=== PATIENT | female | born 1955 | race Caucasian/White ===

== ENCOUNTER 2023-07-06 19:34 | Emergency (ER) | payer MEDICAID, MEDICARE ==
[~2023-07-06] VITALS: Ht 162.6 cm; Wt 56.8 kg
[~2023-07-06 19:34] MED LIST: ASPI-1085 PO; CIPR2.5D12 LEFTEYE; NICO-687 TD; VALA100031 PO
[2023-07-06 19:53] VITALS: TEMP 98.6
[2023-07-06] MEDS ORDERED: acetaminophen 325mg tablet PO ONE (23:20)
[2023-07-06] MEDS ORDERED: ACET-812 PO (23:20)
[2023-07-06 23:29] VITALS: BP 134/69; PULSE 96; RESP 14; O2SAT 90
== END 2023-07-07 00:27 | disposition home or self-care (01) ==
LOC: ER 19:34
DX: M25.572 Pain in left ankle and joints of left foot (principal); Z91.09 Other allergy status, other than to drugs and biological substances; Z88.1 Allergy status to other antibiotic agents; Z79.1 Long term (current) use of non-steroidal anti-inflammatories (NSAID); Z79.82 Long term (current) use of aspirin
CPT/HCPCS: 93971; 99284; A4615

== ENCOUNTER 2023-07-14 18:18 | Inpatient (IN) | payer MEDICARE, MEDICAID ==
[~2023-07-14] VITALS: Ht 160 cm; Wt 61.2 kg
[~2023-07-14 18:18] MED LIST changes: +ACET-812 PO
[2023-07-14 18:29] LABS: BASOPHILS % (AUTO) 0.1 % (0-1); EOSINOPHILS # (AUTO) 0.1 X10'3 (0-0.9); EOSINOPHILS % (AUTO) 0.2 % (0-6); HEMATOCRIT 29.7 % (35.0-45.0); HEMOGLOBIN 9.2 g/dl (12.0-16.0); LYMPHOCYTES # (AUTO) 1.3 X10'3 (1.1-4.8); LYMPHOCYTES % (AUTO) 4.7 % (21-51); MEAN CORPUSCULAR HEMOGLOBIN 23.8 PG (27.0-31.0); MEAN CORPUSCULAR HGB CONC 30.8 g/dL (33.0-36.5); MEAN PLATELET VOLUME 8.1 FL (7.4-10.4); MONOCYTES # (AUTO) 0.8 X10'3 (0-0.9); MONOCYTES % (AUTO) 2.7 % (2-12); NEUTROPHILS # (AUTO) 26.1 X10'3 (1.8-7.7); NEUTROPHILS % (AUTO) 92.3 % (42-75); PLATELET COUNT 362 X10'3 (140-440); RED BLOOD COUNT 3.85 X10'6 (4.20-5.60); RED CELL DISTRIBUTION WIDTH 24.4 % (11.5-14.5)
[2023-07-14 18:37] LABS: WHITE BLOOD COUNT 28.3 X10'3 (4.5-11.0)
[2023-07-14 18:46] LABS: ALANINE AMINOTRANSFERASE 54 U/L (12-78); ALBUMIN 1.6 G/DL (3.4-5.0); ALBUMIN/GLOBULIN RATIO 0.4 (1.1-1.5); ALKALINE PHOSPHATASE 200 IU/L (46-116); ANION GAP 8 (8-16); ASPARTATE AMINO TRANSFERASE 56 U/L (10-37); BLOOD UREA NITROGEN 44 MG/DL (7-18); BUN/CREATININE RATIO 35.8 (10.0-20.0); CALCIUM 8.7 MG/DL (8.5-10.1); CHLORIDE 101 MMOL/L (99-107); CREATININE 1.23 MG/DL (0.40-0.90); GLUCOSE 106 MG/DL (70-104); POTASSIUM 3.2 MMOL/L (3.5-5.1); SODIUM 136 MMOL/L (135-145); TOTAL CARBON DIOXIDE 27.5 MMOL/L (24-32); TOTAL PROTEIN 5.8 G/DL (6.4-8.2); eCRCL 36 ML/MIN; eGFR 43 ML/MIN
[2023-07-14 18:53] LABS: PRO BRAIN NATRIURETIC PEPTIDE 1634 PG/ML (0-125)
[2023-07-14 18:57] LABS: ANISOCYTOSIS 3+; MICROCYTOSIS 1+; PLATELET ESTIMATE NORMAL; TOTAL CELLS COUNTED 100
[2023-07-14 18:58] LABS: HYPOCHROMASIA 1+; STOMATOCYTES FEW; TARGET CELLS FEW
[2023-07-14] MEDS ORDERED: ringers solution, lacted 1,000 ML IV ONE ×2 (19:10→19:45)
[2023-07-14 19:50] LABS: APTT 35 SECONDS (22-32); INR 1.2 INR; PROTHROMBIN TIME 12.8 SECONDS (9.0-12.0)
[2023-07-14 19:57] LABS: CREATINE KINASE 44 U/L (26-192); CREATINE KINASE MB 1.3 ng/ml (0.3-3.6); PRO BRAIN NATRIURETIC PEPTIDE 1750 PG/ML (0-125)
[2023-07-14 20:15] LABS: BILIRUBIN,URINE SMALL (Neg); CLARITY,URINE SLIGHTLY CLOUDY (Clear); GLUCOSE, URINE NEGATIVE (Neg); KETONES,URINE NEGATIVE (Neg); LEUKOCYTE ESTERASE ,URINE NEGATIVE (Neg); NITRITES, URINE NEGATIVE (Neg); OCCULT BLOOD,URINE NEGATIVE (Neg); PROTEIN,URINE TRACE mg/dl (Neg)
[2023-07-14 20:30] LABS: COLOR,URINE DARK YELLOW (Yellow); UA COLLECTION TYPE STRAIGHT CATH
[2023-07-14 20:35] LABS: BACTERIA,URINE 4+ /HPF (Neg); RBC,URINE 0-2 /HPF (0-2); SQUAMOUS EPITHELIAL CELL,UR FEW /LPF (FEW)
[2023-07-14] MEDS ORDERED: potassium Cl 40MEQ/1/2NS 520ml 520 ML IV PRN (22:20)
[2023-07-14] MEDS ORDERED: vancomycin inj 1,000 MG in normal saline 250ml IV soln 250 ML IV STA (22:20)
[2023-07-14] MEDS ORDERED: mag hydrox/Alum hydrox/simeth 30ml oral suspension PO PRN (22:20)
[2023-07-14] MEDS ORDERED: potassium Cl 20 mEq SR tablet PO PRN ×2 (22:20)
[2023-07-14] MEDS ORDERED: ondansetron/PF 4mg/2ml inj IV PRN (22:20)
[2023-07-14] MEDS ORDERED: magnesium 4gm in 100ml NS 100 ML IV PRN (22:20)
[2023-07-14] MEDS ORDERED: ipratropium/albuterol 3ml nebule NEB PRN (22:20)
[2023-07-14] MEDS ORDERED: acetaminophen 325mg tablet PO PRN (22:20)
[2023-07-14] MEDS ORDERED: albuterol 2.5 MG/3 ML nebule NEB PRN (22:20)
[2023-07-14] MEDS ORDERED: iohexol 300mg/ml 100ml inj. ONE (22:24)
[2023-07-14] MEDS ORDERED: VANCOmycin 1250MG/NS 250ml Bag 250 ML IV ONE (23:00)
[2023-07-14 23:04] VITALS: PULSE 73; RESP 18; O2SAT 95
[2023-07-14] MEDS: normal saline 1000ml 1,000 ML IV SCH (23:10)
[2023-07-15] VITALS (26 sets, daily range): BP systolic 117–154; BP diastolic 52–85; PULSE 82–122; RESP 17–35; TEMP 97.7–99.2; O2SAT 89–98
[2023-07-15] MEDS ORDERED: piperacillin/tazo 3.375gm/50ml 50 ML IV ONE
[2023-07-15 07:45] LABS: ALANINE AMINOTRANSFERASE 50 U/L (12-78); ALBUMIN 1.4 G/DL (3.4-5.0); ALBUMIN/GLOBULIN RATIO 0.4 (1.1-1.5); ALKALINE PHOSPHATASE 165 IU/L (46-116); ANION GAP 11 (8-16); ASPARTATE AMINO TRANSFERASE 44 U/L (10-37); BILIRUBIN,TOTAL 1.3 MG/DL (0.1-1.0); BLOOD UREA NITROGEN 33 MG/DL (7-18); BUN/CREATININE RATIO 36.3 (10.0-20.0); CALCIUM 8.1 MG/DL (8.5-10.1); CHLORIDE 105 MMOL/L (99-107); CREATININE 0.91 MG/DL (0.40-0.90); GLUCOSE 67 MG/DL (70-104); MAGNESIUM 1.8 MG/DL (1.5-2.4); POTASSIUM 3.6 MMOL/L (3.5-5.1); SODIUM 138 MMOL/L (135-145); TOTAL CARBON DIOXIDE 22.5 MMOL/L (24-32); TOTAL PROTEIN 4.9 G/DL (6.4-8.2); eCRCL 48 ML/MIN; eGFR 61 ML/MIN
[2023-07-15 07:58] LABS: BASOPHILS % (AUTO) 0 % (0-1); EOSINOPHILS # (AUTO) 0.1 X10'3 (0-0.9); EOSINOPHILS % (AUTO) 0.8 % (0-6); LYMPHOCYTES % (AUTO) 5.9 % (21-51); MEAN PLATELET VOLUME 8.9 FL (7.4-10.4); MONOCYTES # (AUTO) 0.4 X10'3 (0-0.9); MONOCYTES % (AUTO) 2.4 % (2-12); NEUTROPHILS % (AUTO) 90.9 % (42-75)
[2023-07-15] MEDS: K and/or MAG REPLACEMENT MC SCH ×2 (08:00→20:00)
[2023-07-15 08:10] LABS: % IRON SATURATION 7 % (11-46); IRON 9 UG/DL (49-151); TOTAL IRON BINDING CAPACITY 134 UG/DL (259-388)
[2023-07-15 08:28] LABS: HEMATOCRIT 29.1 % (35.0-45.0); HEMOGLOBIN 8.8 g/dl (12.0-16.0); MEAN CORPUSCULAR HEMOGLOBIN 23.4 PG (27.0-31.0); MEAN CORPUSCULAR HGB CONC 30.4 g/dL (33.0-36.5); MEAN CORPUSCULAR VOLUME 77.1 FL (78-98); PLATELET COUNT 303 X10'3 (140-440); RED BLOOD COUNT 3.78 X10'6 (4.20-5.60); RED CELL DISTRIBUTION WIDTH 23.8 % (11.5-14.5); WHITE BLOOD COUNT 17.3 X10'3 (4.5-11.0)
[2023-07-15] MEDS: docusate sod 100mg capsule PO SCH ×2 (09:12→20:00)
[2023-07-15] MEDS: normal saline 1000ml 1,000 ML IV SCH (12:00)
[2023-07-15] MEDS ORDERED: cefepime 1GM/NS ADD-VANTAGE 100 ML IV SCH ×2 (13:00)
[2023-07-15] MEDS ORDERED: fentaNYL/PF 50MCG/1 ML 2ML syringe ONE ×2 (15:27→17:52)
[2023-07-15] MEDS ORDERED: midazolam 1 mg/ML 2ml injection ONE (15:27)
[2023-07-15] MEDS ORDERED: BUPIVACAINE liposomal/PF 13.3 MG/ML vial IM ONE (16:30)
[2023-07-15] MEDS ORDERED: BUPIVAcaine/PF 2.5mg/ml (0.25%) 10ml vial ONE (16:30)
[2023-07-15] MEDS ORDERED: morphine 2 MG/ML inj. syringe IV PRN (16:35)
[2023-07-15] MEDS ORDERED: ringers solution, lacted 1,000 ML IV SCH (16:35)
[2023-07-15] MEDS ORDERED: neostigmine methylsulfate 1 MG/ML 10ml vial ONE (16:35)
[2023-07-15] MEDS ORDERED: sevoflurane 250ml liquid IH ONE (16:35)
[2023-07-15] MEDS ORDERED: ondansetron/PF 4mg/2ml inj IV PRN (16:35)
[2023-07-15] MEDS ORDERED: glycopyrrolate 0.2mg/ml inj ONE (16:35)
[2023-07-15] MEDS ORDERED: proCHLORperazine 10 MG/2 ml inj IV PRN (16:35)
[2023-07-15] MEDS ORDERED: morphine 4 MG/ML inj SYRINge IV PRN (16:35)
[2023-07-15] MEDS ORDERED: meperidine/PF 25mg/ml syringe IV PRN ×3 (16:35)
[2023-07-15] MEDS ORDERED: ondansetron/PF 4mg/2ml inj ONE (17:46)
[2023-07-15] MEDS ORDERED: LIDOcaine 2% (20mg/ml) 5ml vial ONE (17:46)
[2023-07-15] MEDS ORDERED: rocuronium 10mg/ml inj IV ONE (17:46)
[2023-07-15] MEDS ORDERED: dexamethasone sod phosphate 4mg/ml inj. ONE (17:46)
[2023-07-15] MEDS ORDERED: albumin (Human) 5% 250ml 500 ML IV ONE (17:47)
[2023-07-15] MEDS ORDERED: propofol inj 20 ML IV ONE (17:47)
[2023-07-15] MEDS ORDERED: sugammadex 200mg/2ml injection IV ONE (18:06)
[2023-07-15 18:29] LABS: ABG BASE EXCESS -9.5 mmol/L (-2.0-2.0); ABG HCO3 17.4 mmol/L (22.0-26.0); ABG OXYGEN SATURATION 91.4 % (94-97); ABG PCO2 (T) 41.5 mmHg (32.0-45.0); ABG PH (T) 7.238 (7.350-7.450); ABG PO2 (T) 67.1 mmHg (75.0-100.0); ALLEN'S TEST POSITIVE; FCOHb 0.3 % (0.0-3.9); FHHb 8.5 % (0.0-5.0); FLOW 10 L/min; FMetHb 0.3 % (0.0-1.5); FO2Hb 90.9 % (94-97); MODE MASK - SIMPLE; PATIENT TEMPERATURE 36.8; TOTAL HEMOGLOBIN 8.9 G/dl (12.0-16.0)
[2023-07-15] MEDS ORDERED: dextrose 50%-water 50ml dispensing syringe IV ONE ×2 (18:29→18:30)
[2023-07-15] MEDS ORDERED: sodium bicarbonate (8.4%) 1 mEq/ml syringe IV ONE (18:30)
[2023-07-15] MEDS ORDERED: sodium bicarbonate (8.4%) inj. 1 MEQ/ML ML ONE (18:35)
[2023-07-15] MEDS ORDERED: ipratropium/albuterol 3ml nebule NEB ONE (18:40)
[2023-07-15] MEDS: dextrose 5%-1/2 normal saline 1,000 ML IV SCH (19:28)
[2023-07-15] MEDS ORDERED: LIDOcaine 1% (10mg/ml) 2ml vial ONE (19:30)
[2023-07-15 19:56] LABS: ABG BASE EXCESS -4.8 mmol/L (-2.0-2.0); ABG HCO3 21.4 mmol/L (22.0-26.0); ABG OXYGEN SATURATION 91.2 % (94-97); ABG PH (T) 7.304 (7.350-7.450); ABG PO2 (T) 60.6 mmHg (75.0-100.0); FCOHb 1.1 % (0.0-3.9); FHHb 8.7 % (0.0-5.0); FLOW 10 L/min; FMetHb 0.3 % (0.0-1.5); FO2Hb 89.9 % (94-97); MODE MASK - SIMPLE; PATIENT TEMPERATURE 36.8; TOTAL HEMOGLOBIN 9.7 G/dl (12.0-16.0)
[2023-07-15] MEDS ORDERED: enoxaparin 40mg/0.4ml syringe SQ SCH (20:00)
[2023-07-15] MEDS ORDERED: VANCOMYCIN LEVEL IV ONE (22:30)
[2023-07-15] MEDS: vancomycin/NS 1 GM ADD-VANTAGE 250 ML IV SCH (22:34)
[2023-07-15 22:36] LABS: BASOPHILS % (AUTO) 0.1 % (0-1); EOSINOPHILS # (AUTO) 0.1 X10'3 (0-0.9); EOSINOPHILS % (AUTO) 0.7 % (0-6); HEMATOCRIT 30.1 % (35.0-45.0); LYMPHOCYTES # (AUTO) 0.6 X10'3 (1.1-4.8); NEUTROPHILS # (AUTO) 16.7 X10'3 (1.8-7.7); NEUTROPHILS % (AUTO) 94.5 % (42-75); WHITE BLOOD COUNT 17.7 X10'3 (4.5-11.0)
[2023-07-15 22:40] LABS: HEMOGLOBIN 9.7 g/dl (12.0-16.0); LYMPHOCYTES % (AUTO) 3.3 % (21-51); MEAN CORPUSCULAR HGB CONC 32.1 g/dL (33.0-36.5); MEAN CORPUSCULAR VOLUME 80.9 FL (78-98); MEAN PLATELET VOLUME 8.2 FL (7.4-10.4); MONOCYTES # (AUTO) 0.3 X10'3 (0-0.9); MONOCYTES % (AUTO) 1.4 % (2-12); PLATELET COUNT 316 X10'3 (140-440); RED BLOOD COUNT 3.72 X10'6 (4.20-5.60); RED CELL DISTRIBUTION WIDTH 23.9 % (11.5-14.5)
[2023-07-15] MEDS ORDERED: VANCOMYCIN 750MG IV in NS 250 ML IV SCH (23:00)
[2023-07-15 23:04] LABS: ALANINE AMINOTRANSFERASE 37 U/L (12-78); ALBUMIN/GLOBULIN RATIO 0.8 (1.1-1.5); ALKALINE PHOSPHATASE 111 IU/L (46-116); ANION GAP 9 (8-16); ASPARTATE AMINO TRANSFERASE 36 U/L (10-37); BILIRUBIN,TOTAL 2.1 MG/DL (0.1-1.0); BLOOD UREA NITROGEN 24 MG/DL (7-18); CALCIUM 7.6 MG/DL (8.5-10.1); CHLORIDE 109 MMOL/L (99-107); CREATININE 0.75 MG/DL (0.40-0.90); GLUCOSE 150 MG/DL (70-104); MAGNESIUM 1.4 MG/DL (1.5-2.4); PHOSPHORUS 2.3 MG/DL (2.3-4.5); POTASSIUM 3.8 MMOL/L (3.5-5.1); SODIUM 142 MMOL/L (135-145); TOTAL CARBON DIOXIDE 24.2 MMOL/L (24-32); TOTAL PROTEIN 4.6 G/DL (6.4-8.2); eCRCL 59 ML/MIN; eGFR 77 ML/MIN
[2023-07-15 23:15] LABS: ANISOCYTOSIS 3+; PLATELET ESTIMATE NORMAL; TOTAL CELLS COUNTED 100; TOXIC GRANULATION 1+
[2023-07-15 23:16] LABS: POIKILOCYTOSIS FEW; POLYCHROMASIA FEW; STOMATOCYTES 2+; TARGET CELLS 2+
[2023-07-16] VITALS (19 sets, daily range): BP systolic 101–135; BP diastolic 45–62; PULSE 76–109; RESP 14–20; TEMP 97.7–97.8; O2SAT 87–98
[2023-07-16] MEDS: HYDROmorphone inj. 0.5 MG/0.5 ML DISP.SYRIN IV PRN ×2 (00:16→23:01)
[2023-07-16] MEDS: dextrose 5%-1/2 normal saline 1,000 ML IV SCH ×3 (05:10→19:46)
[2023-07-16 05:22] LABS: BASOPHILS % (AUTO) 0 % (0-1); MEAN CORPUSCULAR HGB CONC 30.9 g/dL (33.0-36.5)
[2023-07-16 05:23] LABS: EOSINOPHILS % (AUTO) 0.1 % (0-6); HEMATOCRIT 31.1 % (35.0-45.0); HEMOGLOBIN 9.6 g/dl (12.0-16.0); LYMPHOCYTES # (AUTO) 1.2 X10'3 (1.1-4.8); MEAN CORPUSCULAR HEMOGLOBIN 25.1 PG (27.0-31.0); MEAN CORPUSCULAR VOLUME 81.4 FL (78-98); MEAN PLATELET VOLUME 8.4 FL (7.4-10.4); MONOCYTES # (AUTO) 0.6 X10'3 (0-0.9); MONOCYTES % (AUTO) 2.3 % (2-12); NEUTROPHILS # (AUTO) 22.8 X10'3 (1.8-7.7); NEUTROPHILS % (AUTO) 92.6 % (42-75); PLATELET COUNT 351 X10'3 (140-440); RED BLOOD COUNT 3.83 X10'6 (4.20-5.60); RED CELL DISTRIBUTION WIDTH 23.8 % (11.5-14.5); WHITE BLOOD COUNT 24.6 X10'3 (4.5-11.0)
[2023-07-16 05:33] LABS: ALANINE AMINOTRANSFERASE 35 U/L (12-78); ALBUMIN 1.8 G/DL (3.4-5.0); ALBUMIN/GLOBULIN RATIO 0.7 (1.1-1.5); ALKALINE PHOSPHATASE 103 IU/L (46-116); ANION GAP 8 (8-16); ASPARTATE AMINO TRANSFERASE 36 U/L (10-37); BILIRUBIN,TOTAL 1.6 MG/DL (0.1-1.0); BLOOD UREA NITROGEN 22 MG/DL (7-18); BUN/CREATININE RATIO 32.8 (10.0-20.0); CALCIUM 7.9 MG/DL (8.5-10.1); CHLORIDE 109 MMOL/L (99-107); CREATININE 0.67 MG/DL (0.40-0.90); GLUCOSE 140 MG/DL (70-104); MAGNESIUM 3.3 MG/DL (1.5-2.4); POTASSIUM 4.1 MMOL/L (3.5-5.1); SODIUM 142 MMOL/L (135-145); TOTAL CARBON DIOXIDE 25.1 MMOL/L (24-32); TOTAL PROTEIN 4.5 G/DL (6.4-8.2); eCRCL 66 ML/MIN; eGFR 87 ML/MIN
[2023-07-16] MEDS: docusate sod 100mg capsule PO SCH (06:26)
[2023-07-16 06:40] LABS: ANISOCYTOSIS 3+; TOTAL CELLS COUNTED 100
[2023-07-16 06:41] LABS: HYPOCHROMASIA 2+; PLATELET ESTIMATE NORMAL; TOXIC GRANULATION 2+
[2023-07-16 06:42] LABS: POLYCHROMASIA 1+; STOMATOCYTES 2+
[2023-07-16] MEDS: K and/or MAG REPLACEMENT MC SCH ×2 (08:29→20:00)
[2023-07-16] MEDS: cefepime 1GM/NS ADD-VANTAGE 100 ML IV SCH (12:44)
[2023-07-16] MEDS ORDERED: NO HOME MEDS (12:46)
[2023-07-16 20:11] LABS: BASOPHILS % (AUTO) 0.1 % (0-1); EOSINOPHILS % (AUTO) 0 % (0-6); HEMATOCRIT 30.2 % (35.0-45.0); HEMOGLOBIN 9.6 g/dl (12.0-16.0); LYMPHOCYTES # (AUTO) 1.2 X10'3 (1.1-4.8); LYMPHOCYTES % (AUTO) 4.4 % (21-51); MEAN CORPUSCULAR HEMOGLOBIN 25.9 PG (27.0-31.0); MEAN CORPUSCULAR HGB CONC 31.8 g/dL (33.0-36.5); MEAN CORPUSCULAR VOLUME 81.5 FL (78-98); MEAN PLATELET VOLUME 8.4 FL (7.4-10.4); MONOCYTES # (AUTO) 0.7 X10'3 (0-0.9); MONOCYTES % (AUTO) 2.7 % (2-12); NEUTROPHILS # (AUTO) 24.8 X10'3 (1.8-7.7); NEUTROPHILS % (AUTO) 92.8 % (42-75); PLATELET COUNT 324 X10'3 (140-440); RED CELL DISTRIBUTION WIDTH 24.3 % (11.5-14.5)
[2023-07-16 20:19] LABS: WHITE BLOOD COUNT 26.7 X10'3 (4.5-11.0)
[2023-07-16] MEDS: vancomycin/NS 1 GM ADD-VANTAGE 250 ML IV SCH (22:52)
[2023-07-17] MEDS: dextrose 5%-1/2 normal saline 1,000 ML IV SCH ×2 (04:25→18:09)
[2023-07-17 05:10] LABS: NUCLEATED RED BLOOD CELLS 1 /100WBC (0-0); TOTAL CELLS COUNTED 100
[2023-07-17 05:12] LABS: ANISOCYTOSIS 3+; PLATELET ESTIMATE NORMAL; TARGET CELLS FEW
[2023-07-17 05:13] LABS: LARGE PLATELETS FEW; TOXIC VACUOLATION 1+
[2023-07-17 06:32] VITALS: BP 93/60; PULSE 90; RESP 16; TEMP 97.9; O2SAT 94
[2023-07-17] MEDS: HYDROmorphone inj. 0.5 MG/0.5 ML DISP.SYRIN IV PRN ×2 (07:23→18:09)
[2023-07-17 08:00] VITALS: RESP 14
[2023-07-17] MEDS: K and/or MAG REPLACEMENT MC SCH ×2 (08:00→20:00)
[2023-07-17] MEDS: cefepime 1GM/NS ADD-VANTAGE 100 ML IV SCH (08:05)
[2023-07-17 12:15] LABS: BASOPHILS % (AUTO) 0 % (0-1); EOSINOPHILS % (AUTO) 0 % (0-6); LYMPHOCYTES % (AUTO) 7.8 % (21-51); MEAN PLATELET VOLUME 7.8 FL (7.4-10.4); MONOCYTES # (AUTO) 1.3 X10'3 (0-0.9); MONOCYTES % (AUTO) 5.2 % (2-12); NEUTROPHILS # (AUTO) 21.9 X10'3 (1.8-7.7)
[2023-07-17 12:43] LABS: ALANINE AMINOTRANSFERASE 37 U/L (12-78); ALBUMIN 1.6 G/DL (3.4-5.0); ALBUMIN/GLOBULIN RATIO 0.4 (1.1-1.5); ALKALINE PHOSPHATASE 126 IU/L (46-116); ANION GAP 7 (8-16); ASPARTATE AMINO TRANSFERASE 44 U/L (10-37); BILIRUBIN,TOTAL 0.8 MG/DL (0.1-1.0); BLOOD UREA NITROGEN 14 MG/DL (7-18); BUN/CREATININE RATIO 20.9 (10.0-20.0); C-REACTIVE PROTEIN 16.32 MG/DL (0.0-0.5); CALCIUM 8.4 MG/DL (8.5-10.1); CHLORIDE 111 MMOL/L (99-107); CREATININE 0.67 MG/DL (0.40-0.90); GLUCOSE 131 MG/DL (70-104); MAGNESIUM 2.1 MG/DL (1.5-2.4); POTASSIUM 3.9 MMOL/L (3.5-5.1); SODIUM 140 MMOL/L (135-145); TOTAL CARBON DIOXIDE 22.4 MMOL/L (24-32); TOTAL PROTEIN 5.5 G/DL (6.4-8.2); eCRCL 66 ML/MIN; eGFR 87 ML/MIN
[2023-07-17 12:55] LABS: RED BLOOD COUNT 3.32 X10'6 (4.20-5.60); WHITE BLOOD COUNT 22.1 X10'3 (4.5-11.0)
[2023-07-17 12:56] LABS: HEMATOCRIT 27.6 % (35.0-45.0); HEMOGLOBIN 8.5 g/dl (12.0-16.0); MEAN CORPUSCULAR HEMOGLOBIN 25.6 PG (27.0-31.0); MEAN CORPUSCULAR HGB CONC 30.8 g/dL (33.0-36.5); MEAN CORPUSCULAR VOLUME 83.1 FL (78-98); PLATELET COUNT 272 X10'3 (140-440); RED CELL DISTRIBUTION WIDTH 23.5 % (11.5-14.5)
[2023-07-17 13:00] LABS: ANISOCYTOSIS 3+; PLATELET ESTIMATE NORMAL; POIKILOCYTOSIS FEW; POLYCHROMASIA FEW; TARGET CELLS FEW
[2023-07-17 18:00] VITALS: BP_SYST 132; BP_SYST 138; BP_DIAS 66; BP_DIAS 77; PULSE 89; RESP 14; RESP 18; TEMP 97.3; TEMP 97.4; O2SAT 93; O2SAT 97
[2023-07-17] MEDS: enoxaparin 40mg/0.4ml syringe SUBCUT SCH (20:00)
[2023-07-17 20:02] VITALS: PULSE 81; RESP 16; O2SAT 97
[2023-07-17 22:00] VITALS: BP 147/77; PULSE 85; RESP 20; TEMP 98.3; O2SAT 98
[2023-07-17] MEDS ORDERED: VANCOMYCIN LEVEL IV ONE (22:30)
[2023-07-17] MEDS: vancomycin/NS 1 GM ADD-VANTAGE 250 ML IV SCH (22:56)
[2023-07-18] VITALS (8 sets, daily range): BP systolic 134–166; BP diastolic 77–94; PULSE 83–104; RESP 14–20; TEMP 97.9–98.2; O2SAT 92–98
[2023-07-18] MEDS: HYDROmorphone inj. 0.5 MG/0.5 ML DISP.SYRIN IV PRN ×2 (05:45→15:50)
[2023-07-18 07:00] LABS: BASOPHILS % (AUTO) 0.1 % (0-1); EOSINOPHILS % (AUTO) 0.1 % (0-6); HEMATOCRIT 27.8 % (35.0-45.0); HEMOGLOBIN 8.6 g/dl (12.0-16.0); LYMPHOCYTES # (AUTO) 1.4 X10'3 (1.1-4.8); LYMPHOCYTES % (AUTO) 7.2 % (21-51); MEAN CORPUSCULAR HEMOGLOBIN 25.2 PG (27.0-31.0); MEAN CORPUSCULAR HGB CONC 30.9 g/dL (33.0-36.5); MEAN CORPUSCULAR VOLUME 81.6 FL (78-98); MEAN PLATELET VOLUME 7.8 FL (7.4-10.4); MONOCYTES # (AUTO) 0.9 X10'3 (0-0.9); MONOCYTES % (AUTO) 4.8 % (2-12); NEUTROPHILS # (AUTO) 17.3 X10'3 (1.8-7.7); NEUTROPHILS % (AUTO) 87.8 % (42-75); PLATELET COUNT 311 X10'3 (140-440); RED CELL DISTRIBUTION WIDTH 23.5 % (11.5-14.5); WHITE BLOOD COUNT 19.7 X10'3 (4.5-11.0)
[2023-07-18] MEDS: cefepime 1GM/NS ADD-VANTAGE 100 ML IV SCH (07:00)
[2023-07-18] MEDS: dextrose 5%-1/2 normal saline 1,000 ML IV SCH ×3 (07:10→20:07)
[2023-07-18 07:28] LABS: ALANINE AMINOTRANSFERASE 35 U/L (12-78); ALBUMIN 1.4 G/DL (3.4-5.0); ALBUMIN/GLOBULIN RATIO 0.4 (1.1-1.5); ALKALINE PHOSPHATASE 108 IU/L (46-116); ANION GAP 7 (8-16); ASPARTATE AMINO TRANSFERASE 32 U/L (10-37); BILIRUBIN,TOTAL 0.6 MG/DL (0.1-1.0); BLOOD UREA NITROGEN 13 MG/DL (7-18); BUN/CREATININE RATIO 23.6 (10.0-20.0); CHLORIDE 111 MMOL/L (99-107); CREATININE 0.55 MG/DL (0.40-0.90); GLUCOSE 113 MG/DL (70-104); MAGNESIUM 1.8 MG/DL (1.5-2.4); POTASSIUM 3.4 MMOL/L (3.5-5.1); SODIUM 142 MMOL/L (135-145); TOTAL CARBON DIOXIDE 24.5 MMOL/L (24-32); TOTAL PROTEIN 4.9 G/DL (6.4-8.2); eCRCL 80 ML/MIN; eGFR > 90 ML/MIN
[2023-07-18] MEDS: K and/or MAG REPLACEMENT MC SCH ×2 (08:00→20:02)
[2023-07-18 08:16] LABS: ANISOCYTOSIS 3+; HYPERSEGMENTED NEUTROPHILS FEW; NUCLEATED RED BLOOD CELLS 1 /100WBC (0-0); PLATELET ESTIMATE NORMAL; TOTAL CELLS COUNTED 100
[2023-07-18 08:17] LABS: HYPOCHROMASIA 1+; POLYCHROMASIA 1+; STOMATOCYTES 2+
[2023-07-18] MEDS ORDERED: potassium Cl 20 mEq SR tablet PO PRN (17:45)
[2023-07-18] MEDS ORDERED: magnesium 2GM in 50ml NS 50 ML IV PRN (17:45)
[2023-07-18] MEDS ORDERED: magnesium Cl slow-release 64mg tablet PO PRN (17:45)
[2023-07-18] MEDS ORDERED: magnesium 4gm in 100ml NS 100 ML IV PRN (17:45)
[2023-07-18] MEDS ORDERED: potassium Cl 40MEQ/1/2NS 520ml 520 ML IV PRN (17:45)
[2023-07-18] MEDS: enoxaparin 40mg/0.4ml syringe SUBCUT SCH (20:08)
[2023-07-18] MEDS: potassium Cl 20 mEq SR tablet PO PRN (20:08)
[2023-07-18] MEDS: vancomycin/NS 1 GM ADD-VANTAGE 250 ML IV SCH (23:24)
[2023-07-19] VITALS (8 sets, daily range): BP systolic 130–151; BP diastolic 71–93; PULSE 110–124; RESP 14–19; TEMP 96.9–100.8; O2SAT 90–95
[2023-07-19] MEDS: dextrose 5%-1/2 normal saline 1,000 ML IV SCH (05:30)
[2023-07-19 06:17] LABS: BASOPHILS % (AUTO) 0.1 % (0-1); EOSINOPHILS % (AUTO) 0.2 % (0-6); HEMOGLOBIN 9.5 g/dl (12.0-16.0); LYMPHOCYTES # (AUTO) 1.5 X10'3 (1.1-4.8); LYMPHOCYTES % (AUTO) 8.4 % (21-51); MEAN CORPUSCULAR HEMOGLOBIN 25.8 PG (27.0-31.0); MEAN CORPUSCULAR HGB CONC 31.7 g/dL (33.0-36.5); MEAN CORPUSCULAR VOLUME 81.3 FL (78-98); MONOCYTES # (AUTO) 0.8 X10'3 (0-0.9); MONOCYTES % (AUTO) 4.6 % (2-12); NEUTROPHILS % (AUTO) 86.7 % (42-75); PLATELET COUNT 334 X10'3 (140-440); RED BLOOD COUNT 3.69 X10'6 (4.20-5.60); RED CELL DISTRIBUTION WIDTH 23.1 % (11.5-14.5); WHITE BLOOD COUNT 17.3 X10'3 (4.5-11.0)
[2023-07-19 06:25] LABS: ALANINE AMINOTRANSFERASE 30 U/L (12-78); ALBUMIN 1.5 G/DL (3.4-5.0); ALBUMIN/GLOBULIN RATIO 0.4 (1.1-1.5); ALKALINE PHOSPHATASE 107 IU/L (46-116); ANION GAP 7 (8-16); ASPARTATE AMINO TRANSFERASE 40 U/L (10-37); BILIRUBIN,TOTAL 0.8 MG/DL (0.1-1.0); BLOOD UREA NITROGEN 9 MG/DL (7-18); BUN/CREATININE RATIO 14.3 (10.0-20.0); CALCIUM 8.1 MG/DL (8.5-10.1); CHLORIDE 109 MMOL/L (99-107); CREATININE 0.63 MG/DL (0.40-0.90); GLUCOSE 108 MG/DL (70-104); MAGNESIUM 1.6 MG/DL (1.5-2.4); POTASSIUM 3.6 MMOL/L (3.5-5.1); SODIUM 141 MMOL/L (135-145); TOTAL CARBON DIOXIDE 25.1 MMOL/L (24-32); TOTAL PROTEIN 5.2 G/DL (6.4-8.2); eCRCL 70 ML/MIN; eGFR > 90 ML/MIN
[2023-07-19] MEDS: K and/or MAG REPLACEMENT MC SCH ×2 (08:00→20:00)
[2023-07-19 08:39] LABS: ANISOCYTOSIS 3+; NUCLEATED RED BLOOD CELLS 1 /100WBC (0-0); PLATELET ESTIMATE NORMAL; POLYCHROMASIA 1+; TOTAL CELLS COUNTED 100
[2023-07-19 08:40] LABS: HYPOCHROMASIA 1+
[2023-07-19 08:41] LABS: TARGET CELLS FEW
[2023-07-19 08:54] LABS: ISTAT CREATININE 0.7 mg/dL (0.6-1.1); ISTAT K 4.2 mmol/L (3.5-5.1); POC BUN/CREATININE RATIO 42.9 (6.6-38.0)
[2023-07-19 08:55] LABS: ISTAT HGB 10.2 g/dl (12.0-16.0); ISTAT IONIZED CALCIUM 1.21 mmol/L (1.03-1.32)
[2023-07-19] MEDS: CefTRIAXone 2gm/D5W 50ml BAG 50 ML IV SCH (11:45)
[2023-07-19] MEDS: metroNIDAZOLE-Flagyl 500mg/NS 100 ML IV SCH ×2 (12:42→16:26)
[2023-07-19] MEDS: enoxaparin 40mg/0.4ml syringe SUBCUT SCH (21:13)
[2023-07-19] MEDS: pantoprazole 40MG/NS 100ML BAG 100 ML IV SCH (21:13)
[2023-07-20] VITALS (7 sets, daily range): BP systolic 99–135; BP diastolic 59–80; PULSE 83–105; RESP 12–19; TEMP 97.4–97.8; O2SAT 88–96
[2023-07-20] MEDS: metroNIDAZOLE-Flagyl 500mg/NS 100 ML IV SCH ×3 (00:08→17:51)
[2023-07-20 06:50] LABS: BASOPHILS % (AUTO) 0.1 % (0-1); EOSINOPHILS % (AUTO) 0.2 % (0-6); HEMATOCRIT 30.9 % (35.0-45.0); HEMOGLOBIN 9.6 g/dl (12.0-16.0); LYMPHOCYTES # (AUTO) 1.2 X10'3 (1.1-4.8); LYMPHOCYTES % (AUTO) 6.9 % (21-51); MEAN CORPUSCULAR HEMOGLOBIN 25.6 PG (27.0-31.0); MEAN CORPUSCULAR VOLUME 82.6 FL (78-98); MEAN PLATELET VOLUME 7.8 FL (7.4-10.4); MONOCYTES # (AUTO) 0.8 X10'3 (0-0.9); MONOCYTES % (AUTO) 5.1 % (2-12); NEUTROPHILS # (AUTO) 14.8 X10'3 (1.8-7.7); NEUTROPHILS % (AUTO) 87.7 % (42-75); PLATELET COUNT 326 X10'3 (140-440); RED BLOOD COUNT 3.74 X10'6 (4.20-5.60); RED CELL DISTRIBUTION WIDTH 23.2 % (11.5-14.5); WHITE BLOOD COUNT 16.8 X10'3 (4.5-11.0)
[2023-07-20 07:05] LABS: ALANINE AMINOTRANSFERASE 30 U/L (12-78); ALBUMIN 1.5 G/DL (3.4-5.0); ALBUMIN/GLOBULIN RATIO 0.4 (1.1-1.5); ALKALINE PHOSPHATASE 92 IU/L (46-116); ANION GAP 3 (8-16); ASPARTATE AMINO TRANSFERASE 23 U/L (10-37); BILIRUBIN,TOTAL 0.6 MG/DL (0.1-1.0); BLOOD UREA NITROGEN 6 MG/DL (7-18); BUN/CREATININE RATIO 10.5 (10.0-20.0); C-REACTIVE PROTEIN 7.97 MG/DL (0.0-0.5); CALCIUM 7.8 MG/DL (8.5-10.1); CHLORIDE 108 MMOL/L (99-107); CREATININE 0.57 MG/DL (0.40-0.90); GLUCOSE 104 MG/DL (70-104); SODIUM 140 MMOL/L (135-145); TOTAL CARBON DIOXIDE 29.1 MMOL/L (24-32); eCRCL 77 ML/MIN; eGFR > 90 ML/MIN
[2023-07-20] MEDS: K and/or MAG REPLACEMENT MC SCH ×2 (08:00→20:46)
[2023-07-20] MEDS: dextrose 5%-1/2 normal saline 1,000 ML IV SCH (09:10)
[2023-07-20] MEDS: pantoprazole 40MG/NS 100ML BAG 100 ML IV SCH ×2 (09:45→20:31)
[2023-07-20] MEDS: CefTRIAXone 2gm/D5W 50ml BAG 50 ML IV SCH (09:45)
[2023-07-20] MEDS: potassium Cl 20 mEq SR tablet PO PRN ×2 (15:26→20:36)
[2023-07-20] MEDS: enoxaparin 40mg/0.4ml syringe SUBCUT SCH (20:37)
[2023-07-21] VITALS (8 sets, daily range): BP systolic 94–118; BP diastolic 54–74; PULSE 97–113; RESP 16–20; TEMP 97.4–98; O2SAT 90–97
[2023-07-21] MEDS: metroNIDAZOLE-Flagyl 500mg/NS 100 ML IV SCH ×3 (00:07→18:08)
[2023-07-21] MEDS: dextrose 5%-1/2 normal saline 1,000 ML IV SCH (05:28)
[2023-07-21] MEDS: K and/or MAG REPLACEMENT MC SCH ×2 (08:00→20:00)
[2023-07-21] MEDS: CefTRIAXone 2gm/D5W 50ml BAG 50 ML IV SCH (09:51)
[2023-07-21] MEDS: pantoprazole 40MG/NS 100ML BAG 100 ML IV SCH (09:51)
[2023-07-21] MEDS ORDERED: LidoCAINE 2% Topical Jelly 11mL syringe TOP ONE (17:05)
[2023-07-21] MEDS: pantoprazole 40mg Tablet.DR PO SCH (21:19)
[2023-07-21] MEDS: enoxaparin 40mg/0.4ml syringe SUBCUT SCH (21:20)
[2023-07-21] MEDS: furosemide 20 MG/2 ML vial IV SCH (21:23)
[2023-07-22] VITALS (7 sets, daily range): BP systolic 89–129; BP diastolic 57–66; PULSE 84–107; RESP 14–18; TEMP 97.9–98.5; O2SAT 90–93
[2023-07-22] MEDS: metroNIDAZOLE-Flagyl 500mg/NS 100 ML IV SCH ×3 (01:01→15:39)
[2023-07-22 06:39] LABS: BASOPHILS % (AUTO) 0.3 % (0-1); EOSINOPHILS # (AUTO) 0.1 X10'3 (0-0.9); EOSINOPHILS % (AUTO) 0.9 % (0-6); HEMATOCRIT 28.7 % (35.0-45.0); LYMPHOCYTES # (AUTO) 1.2 X10'3 (1.1-4.8); LYMPHOCYTES % (AUTO) 9.4 % (21-51); MEAN CORPUSCULAR HEMOGLOBIN 26.3 PG (27.0-31.0); MEAN CORPUSCULAR HGB CONC 31.3 g/dL (33.0-36.5); MEAN PLATELET VOLUME 8.3 FL (7.4-10.4); MONOCYTES # (AUTO) 0.9 X10'3 (0-0.9); NEUTROPHILS # (AUTO) 10.7 X10'3 (1.8-7.7); NEUTROPHILS % (AUTO) 82.4 % (42-75); PLATELET COUNT 344 X10'3 (140-440); RED BLOOD COUNT 3.42 X10'6 (4.20-5.60); RED CELL DISTRIBUTION WIDTH 22.6 % (11.5-14.5)
[2023-07-22 07:03] LABS: ALANINE AMINOTRANSFERASE 13 U/L (12-78); ALBUMIN 1.4 G/DL (3.4-5.0); ALBUMIN/GLOBULIN RATIO 0.4 (1.1-1.5); ALKALINE PHOSPHATASE 78 IU/L (46-116); ANION GAP 5 (8-16); ASPARTATE AMINO TRANSFERASE 12 U/L (10-37); BILIRUBIN,TOTAL 0.5 MG/DL (0.1-1.0); BLOOD UREA NITROGEN 6 MG/DL (7-18); BUN/CREATININE RATIO 11.1 (10.0-20.0); C-REACTIVE PROTEIN 6.06 MG/DL (0.0-0.5); CHLORIDE 108 MMOL/L (99-107); CREATININE 0.54 MG/DL (0.40-0.90); GLUCOSE 92 MG/DL (70-104); POTASSIUM 3.3 MMOL/L (3.5-5.1); SODIUM 142 MMOL/L (135-145); THYROID STIMULATING HORMONE 10.62 ulU/ml (0.34-4.50); TOTAL CARBON DIOXIDE 28.8 MMOL/L (24-32); TOTAL PROTEIN 5.1 G/DL (6.4-8.2); eCRCL 81 ML/MIN; eGFR > 90 ML/MIN
[2023-07-22] MEDS: pantoprazole 40mg Tablet.DR PO SCH ×2 (07:14→19:38)
[2023-07-22 07:52] LABS: PLATELET ESTIMATE NORMAL
[2023-07-22 07:53] LABS: ANISOCYTOSIS 3+; HYPOCHROMASIA 1+; POLYCHROMASIA 1+; STOMATOCYTES 1+
[2023-07-22 07:54] LABS: TARGET CELLS FEW
[2023-07-22] MEDS: K and/or MAG REPLACEMENT MC SCH ×2 (08:00→20:00)
[2023-07-22] MEDS: furosemide 20 MG/2 ML vial IV SCH (10:37)
[2023-07-22] MEDS: CefTRIAXone 2gm/D5W 50ml BAG 50 ML IV SCH (11:44)
[2023-07-22] MEDS ORDERED: aspirin 81mg tab.chew PO ONE (18:10)
[2023-07-22] MEDS: enoxaparin 40mg/0.4ml syringe SUBCUT SCH (19:40)
[2023-07-23] MEDS: metroNIDAZOLE-Flagyl 500mg/NS 100 ML IV SCH ×3 (00:39→16:02)
[2023-07-23 06:00] VITALS: BP 125/68; PULSE 100; RESP 16; TEMP 97.5; O2SAT 96
[2023-07-23] MEDS ORDERED: levoTHYROXINE 75mcg tablet PO SCH (07:00)
[2023-07-23 07:19] LABS: BASOPHILS % (AUTO) 0.2 % (0-1); EOSINOPHILS # (AUTO) 0.1 X10'3 (0-0.9); EOSINOPHILS % (AUTO) 0.5 % (0-6); HEMATOCRIT 27.1 % (35.0-45.0); HEMOGLOBIN 8.4 g/dl (12.0-16.0); LYMPHOCYTES # (AUTO) 1.2 X10'3 (1.1-4.8); LYMPHOCYTES % (AUTO) 9.9 % (21-51); MEAN CORPUSCULAR HEMOGLOBIN 26.1 PG (27.0-31.0); MEAN CORPUSCULAR HGB CONC 30.9 g/dL (33.0-36.5); MEAN CORPUSCULAR VOLUME 84.5 FL (78-98); MEAN PLATELET VOLUME 8.3 FL (7.4-10.4); MONOCYTES # (AUTO) 0.8 X10'3 (0-0.9); NEUTROPHILS # (AUTO) 9.7 X10'3 (1.8-7.7); NEUTROPHILS % (AUTO) 82.4 % (42-75); PLATELET COUNT 350 X10'3 (140-440); RED BLOOD COUNT 3.21 X10'6 (4.20-5.60); RED CELL DISTRIBUTION WIDTH 22.9 % (11.5-14.5); WHITE BLOOD COUNT 11.7 X10'3 (4.5-11.0)
[2023-07-23] MEDS: pantoprazole 40mg Tablet.DR PO SCH (07:22)
[2023-07-23 08:00] VITALS: RESP 16; O2SAT 96
[2023-07-23] MEDS: K and/or MAG REPLACEMENT MC SCH (08:00)
[2023-07-23] MEDS ORDERED: furosemide 20 MG/2 ML vial IV SCH (08:00)
[2023-07-23 08:01] LABS: ANISOCYTOSIS 3+; HYPOCHROMASIA 1+; MICROCYTOSIS 1+; PLATELET ESTIMATE NORMAL; POIKILOCYTOSIS 1+; STOMATOCYTES FEW; TARGET CELLS FEW
[2023-07-23 08:30] LABS: ALANINE AMINOTRANSFERASE 16 U/L (12-78); ALBUMIN 1.4 G/DL (3.4-5.0); ALBUMIN/GLOBULIN RATIO 0.4 (1.1-1.5); ALKALINE PHOSPHATASE 77 IU/L (46-116); ANION GAP 10 (8-16); ASPARTATE AMINO TRANSFERASE 16 U/L (10-37); BILIRUBIN,TOTAL 0.5 MG/DL (0.1-1.0); BLOOD UREA NITROGEN 8 MG/DL (7-18); BUN/CREATININE RATIO 13.3 (10.0-20.0); CHLORIDE 106 MMOL/L (99-107); CHOL/HDL RATIO 3.8 (0.00-4.99); CHOLESTEROL 87 MG/DL (0-200); GLUCOSE 82 MG/DL (70-104); HDL CHOLESTEROL 23 MG/DL (35-60); LDL CHOLESTEROL 44 MG/DL (50-100); POTASSIUM 3.4 MMOL/L (3.5-5.1); SODIUM 144 MMOL/L (135-145); TOTAL CARBON DIOXIDE 28.3 MMOL/L (24-32); TRIGLYCERIDES 81 MG/DL (20-135); eCRCL 73 ML/MIN; eGFR > 90 ML/MIN
[2023-07-23] MEDS ORDERED: aspirin 81mg tab.chew PO SCH (08:30)
[2023-07-23] MEDS: CefTRIAXone 2gm/D5W 50ml BAG 50 ML IV SCH (09:35)
[2023-07-23] MEDS ORDERED: iohexol 350MG/ML 100ml bottle IV ONE (13:34)
[2023-07-24] MEDS ORDERED: metroNIDAZOLE 500mg tablet PO SCH
== END 2023-07-23 19:20 | DRG 853 ==
LOC: ER 18:18 → ED HOLD 22:27 → EDBEDREQ 07-15 06:47 → CICU 2S 07-15 19:33 → ORTHO 4S 07-16 15:04
PROVIDERS: ADMIT Family Medicine; ATTEND Internal Medicine
PROC: 0D1M0Z4 Bypass Descending Colon to Cutaneous, Open Approach (ICD-10-PCS; 2023-07-15)
PROC: 30233N1 Transfusion of Nonautologous Red Blood Cells into Peripheral Vein, Percutaneous Approach (ICD-10-PCS; 2023-07-15)
PROC: 0DBN0ZZ Excision of Sigmoid Colon, Open Approach (ICD-10-PCS; principal; 2023-07-15 16:35)
DX: A41.9 Sepsis, unspecified organism (principal); G93.41 Metabolic encephalopathy; K63.1 Perforation of intestine (nontraumatic); K65.9 Peritonitis, unspecified; N17.0 Acute kidney failure with tubular necrosis; J18.9 Pneumonia, unspecified organism; N39.0 Urinary tract infection, site not specified; D68.9 Coagulation defect, unspecified; E87.20 Acidosis, unspecified; D50.9 Iron deficiency anemia, unspecified; F10.10 Alcohol abuse, uncomplicated; Z66 Do not resuscitate; Z20.822 Contact with and (suspected) exposure to COVID-19; F17.210 Nicotine dependence, cigarettes, uncomplicated; E87.6 Hypokalemia; E03.9 Hypothyroidism, unspecified; K57.30 Diverticulosis of large intestine without perforation or abscess without bleeding; Z88.0 Allergy status to penicillin; Z59.00 Homelessness unspecified; Z79.82 Long term (current) use of aspirin; Z79.899 Other long term (current) drug therapy; Z88.1 Allergy status to other antibiotic agents; Z91.09 Other allergy status, other than to drugs and biological substances
CPT/HCPCS: 36415; 36430; 36600; 70450; 70496; 70498; 71045; 74177; 80047; 80053; 80061; 81001; 82550; 82553; 82803; 82948; 83540; 83550; 83605; 83735; 83880; 84100; 84132; 84145; 84443; 84484; 85007; 85008; 85018; 85025; 85610; 85651; 85730; 86140; 86885; 86900; 86901; 86920; 87040; 87077; 87081; 87088; 87811; 88307; 93005; 94640; 94760; 97161; 97530; 97535; 99285; A4314; A4421; A4615; A4618; A4620; A4649; A5200; A6212; A6253; A6258; A6449; A7000; C1758; C9113; C9290; G0378; J0692; J0696; J1100; J1170; J1650; J1940; J2250; J2405; J2543; J2704; J2710; J3010; J3370; J3475; J3480; J3490; J7030; J7040; J7042; J7050; J7120; P9016; P9045; Q9967